=== PATIENT | female | born 1980 | race Caucasian/White ===

== ENCOUNTER → 2018-02-26 | Outpatient (CLI) | payer BC ==
[2018-02-28 10:05] LABS: HEPATITIS B SURFACE ANTIGEN NEGATIVE (NEGATIVE)
[2018-02-28 14:09] LABS: HEPATITIS C VIRUS ABY INDEX 2.5 INDEX (<0.8)
[2018-03-04 00:06] LABS: HCV RNA NAA QUALITATIVE Negative (Negative)
[2018-03-05 08:11] LABS: HIV 1&2 SCREEN CENTAUR PRELIMINARY POSITIVE (NEGATIVE)
[2018-03-05 08:12] LABS: IMMUNODEF. VIRAL AB CONFIRMAT NEGATIVE
== END ==
LOC: M WUC 11:22
DX: Z11.3 Encounter for screening for infections with a predominantly sexual mode of transmission (principal)
CPT/HCPCS: 87340

== ENCOUNTER → 2018-05-13 | Outpatient (CLI) | payer BC ==
[2018-05-14 11:57] LABS: HEPATITIS B SURFACE ANTIGEN NEGATIVE (NEGATIVE)
[2018-05-14 13:53] LABS: HEPATITIS C VIRUS ABY INDEX 2.4 INDEX (<0.8)
[2018-05-14 13:54] LABS: HIV 1&2 SCREEN CENTAUR REACTIVE (NEGATIVE)
[2018-05-20 08:54] LABS: HCV RNA NAA QUALITATIVE Negative (Negative)
== END ==
LOC: M WUC 10:25
DX: Z11.3 Encounter for screening for infections with a predominantly sexual mode of transmission (principal)
CPT/HCPCS: 87340

== ENCOUNTER 2019-12-21 22:09 | Emergency (ER) | payer BC ==
[~2019-12-21] VITALS: Ht 162.6 cm; Wt 50.3 kg
[~2019-12-21 22:09] MED LIST: IBUP80TA PO; PRENTAB43 PO; TYLE500T7 PO; VALT1TAB PO
[2019-12-21] MEDS: GASTROGRAFIN SOLUTION 30ML PO SCH (23:56)
[2019-12-22 00:09] LABS: BASO % 0.4 % (0.0-1.0); EOS # 0.1 10^3/uL (0.0-0.5); EOS % 1.2 % (0.0-3.0); HEMATOCRIT 38.6 % (36.0-47.0); HEMOGLOBIN 12.9 g/dl (12.0-15.5); LYMPH # 1.5 10^3/uL (1.5-5.0); LYMPH % 18.4 % (24.0-44.0); MEAN CORPUSCULAR HEMOGLOBIN 30.1 pg (27.0-33.0); MEAN CORPUSCULAR HGB CONC 33.4 g/dl (32.0-36.5); MONO # 0.7 10^3/uL (0.0-0.8); MONO % 8.5 % (0.0-5.0); NEUTROPHILS # 5.7 10^3/uL (1.5-8.5); NEUTROPHILS % 70.6 % (36.0-66.0); PLATELET COUNT, AUTOMATED 209 10^3/uL (150-450); RED BLOOD COUNT 4.29 10^6/uL (4.00-5.40)
[2019-12-22 00:13] LABS: HCG, SERUM QUALITATIVE NEGATIVE (NEGATIVE)
[2019-12-22] MEDS: GASTROGRAFIN SOLUTION 30ML PO SCH (00:22)
[2019-12-22 00:38] LABS: ALBUMIN 3.6 GM/DL (3.2-5.2); ALT/SGPT 14 U/L (12-78); BILIRUBIN,DIRECT < 0.1 MG/DL (0.0-0.2); BILIRUBIN,TOTAL 0.2 MG/DL (0.2-1.0); BLOOD UREA NITROGEN 12 MG/DL (7-18); CALCIUM LEVEL 8.8 MG/DL (8.5-10.1); CARBON DIOXIDE LEVEL 25 MEQ/L (21-32); CHLORIDE LEVEL 109 MEQ/L (98-107); CREATININE FOR GFR 0.66 MG/DL (0.55-1.30); GLOMERULAR FILTRATION RATE > 60.0 (>60); GLUCOSE, FASTING 101 MG/DL (70-100); LIPASE 100 U/L (73-393); POTASSIUM SERUM 3.8 MEQ/L (3.5-5.1); SODIUM LEVEL 139 MEQ/L (136-145); TOTAL PROTEIN 6.7 GM/DL (6.4-8.2)
--- NOTE | 2019-12-22 02:05 | REPVR ---
PROCEDURE INFORMATION: Exam: CT Abdomen And Pelvis Without Contrast Exam date and time: 12/21/2019 11:24 PM Age: 39 years old Clinical indication: Abdominal pain; Localized; Left lower quadrant (llq) TECHNIQUE: Imaging protocol: Computed tomography of the abdomen and pelvis without contrast. Radiation optimization: All CT scans at this facility use at least one of these dose optimization techniques: automated exposure control; mA and/or kV adjustment per patient size (includes targeted exams where dose is matched to clinical indication); or iterative reconstruction. COMPARISON: No relevant prior studies available. FINDINGS: Lungs: The imaged portions of the lung bases are clear. Heart: No cardiomegaly or pericardial effusion. Liver: The imaged portion of the liver is unremarkable. The superior aspect of the right hepatic lobe was not imaged. Incidental note is made of a 5 mm cyst in the anterior superior segment 8 of the right hepatic lobe (image 17 of the axial series 201). Gallbladder and bile ducts: No calcified gallstones are noted. No gallbladder wall thickening, pericholecystic fluid, or pericholecystic inflammatory changes are identified. No dilation of the intrahepatic or extrahepatic bile ducts is noted. Pancreas: Unremarkable. No dilation of the main pancreatic duct is noted. There is no inflammatory fat stranding around the pancreas to suggest acute pancreatitis. Spleen: Unremarkable. No splenomegaly is noted. Adrenals: Normal. No adrenal mass is noted. Kidneys and ureters: The kidneys are unremarkable. No renal lesion is identified. No calculi are seen in the kidneys or ureters. There is no hydronephrosis or hydroureter. Stomach and bowel: There is no evidence for a bowel obstruction, diverticulosis, diverticulitis, colitis, perforated viscus, pneumatosis intestinalis, intussusception, or volvulus. Appendix: There are no findings to suggest acute appendicitis. Intraperitoneal space: No free air. There is a trace amount of free fluid in the cul-de-sac. Retroperitoneal space: No fluid collection. No mass. Vasculature: No abdominal aortic aneurysm. Lymph nodes: Normal. No enlarged lymph nodes. Bladder: The distended urinary bladder is normal in appearance. No stones or masses are seen in the bladder. Reproductive: There is an intrauterine device in the endometrial canal and each of the limbs of the intrauterine device penetrate into the myometrium (images 52-57 of the coronal series 202, images 97-102 of the axial series 201, and images 39-47 of the sagittal series 203). The uterus is retroverted. There is a 5.6 cm left ovarian lesion, which has components that measure water density and higher attenuation components that measure approximately 56 Hounsfield units. No calcifications or fat density components are seen within this lesion. The right ovary is unremarkable. Bones/joints: The imaged bony structures are intact. There is no suspicious osteolytic or osteoblastic lesion. Soft tissues: Incidental note is made of a piercing in the umbilical region. There is a tiny fat containing umbilical hernia. IMPRESSION: 1. 5.6 cm complex left ovarian lesion, which may represent a hemorrhagic left ovarian cyst or ovarian tumor. Further evaluation with a pelvic ultrasound is suggested. 2. Intrauterine device in the endometrial canal and each of the limbs of the intrauterine device penetrate into the myometrium. 3. Trace amount of free fluid in the cul-de-sac. Electronically signed by: Ori Staley On 12/22/2019 02:04:25 AM
--- NOTE | 2019-12-22 03:12 | REPVR ---
PROCEDURE INFORMATION: Exam: US Pelvis Complete, Transabdominal and US Pelvis, Transvaginal and US Duplex Artery and Vein, Ovaries, Complete Exam date and time: 12/22/2019 2:41 AM Age: 39 years old Clinical indication: Pain and abnormal findings; Abnormal imaging test; Pelvic pain; Additional info: Eval L adnexal mass TECHNIQUE: Imaging protocol: Real-time transabdominal and transvaginal pelvic ultrasound (complete) with image documentation. Transvaginal imaging was used for better evaluation of the endometrium and adnexa. Real-time duplex ultrasound scan of the arterial and venous flow of the ovaries with B-mode, color Doppler flow and spectral waveform analysis. COMPARISON: CT ABD/PEL W/PO CONTRAST ONLY 12/22/2019 1:13 AM FINDINGS: Uterus/cervix: The uterus is retroverted and measures 7.9 cm x 3.6 cm x 4.5 cm. No myometrial mass is noted. There is an intrauterine device in the endometrial canal, and both limbs for the intrauterine device have penetrated into the myometrium. The endometrium measures 3 mm in thickness. Right adnexa: The right ovary is normal in appearance and measures 2.2 cm x 1.2 cm x 1.9 cm. The arterial and venous color Doppler flow and spectral waveforms within the right ovary are within normal limits, without evidence for right ovarian torsion. Left adnexa: The left ovary measures 6.2 cm x 4.4 cm x 5.1 cm and contains a complex lesion with heterogeneous echogenicity measuring 5.1 cm x 3.9 cm x 4.1 cm. Some color Doppler flow is seen within the lesion. The arterial and venous color Doppler flow and spectral waveforms within the left ovary are within normal limits, without evidence for left ovarian torsion. Free fluid: There is a trace amount of free fluid in the cul-de-sac. Bladder: The bladder is normal in appearance. IMPRESSION: 1. 5.1 cm x 3.9 cm x 4.1 cm complex left ovarian lesion, which may represent an ovarian tumor rather than a hemorrhagic ovarian cyst given that some internal vascularity was demonstrated within this lesion. Gynecology consultation is recommended for further management. A follow-up pelvic ultrasound could be performed in 6-8 weeks, ideally during days 3-10 of the follicular phase of the menstrual cycle to determine if the lesion resolves or decreases in size as would be the case for a hemorrhagic ovarian cyst. Alternatively, surgical removal could be performed for a pathologic diagnosis. 2. No evidence for ovarian torsion. 3. Intrauterine device in the endometrial canal, and both limbs for the intrauterine device penetrate into the myometrium. 4. Trace amount of free fluid in the cul-de-sac. Electronically signed by: Ori Staley On 12/22/2019 03:12:07 AM
[2019-12-22 03:38] VITALS: BP 109/67
--- NOTE | 2019-12-22 06:44 | ED PDOC ---
Post-Departure Follow-Up dr jenkins and sofía thorpe faxed formal report of pelvic us for fu Graham Gotti MD Dec 22, 2019 06:44
== END 2019-12-22 03:54 | disposition home or self-care (01) ==
LOC: M ED 22:09
DX: N83.202 Unspecified ovarian cyst, left side (principal); Z79.899 Other long term (current) drug therapy
CPT/HCPCS: 74176; 76830; 76856; 80053; 80076; 81001; 83690; 84703; 85025; 93976; 99284; Q9963

== ENCOUNTER → 2020-03-08 | Outpatient (CLI) | payer BC ==
--- NOTE | 2020-03-09 03:11 | REP ---
Clinical: Follow-up left ovarian lesion. Comparison: 12/22/2019 . Technique: Transabdominal pelvic ultrasound followed by transvaginal examination for better evaluation of the endometrium and adnexa with color Doppler evaluation of the ovaries. Findings: Bladder is unremarkable and measures 7.8 x 6.5 x 10.1 cm . Heterogeneous retroverted uterus measures 8.5 x 3.9 x 4.5 cm, and IUD is again identified malrotated with the arms into the myometrium. The endometrial complex measures 2.8 mm thickness excluding a small amount of endocervical fluid which is nonspecific. Bilateral ovaries are normal in vascularity without evidence for torsion. Right ovary measures 4.4 x 2.3 x 2.7 cm (RI 0.61) and includes new 2.0 x 1.8 x 2.0 cm complex right ovarian cyst likely hemorrhagic cyst. Left ovary measures 4.2 x 1.6 x 2.2 cm (RI 0.72) and includes 1.2 x 1.0 x 1.5 cm hypoechoic lesion which may represent the previously noted resolving 5 cm hemorrhagic cyst and new 1.4 x 1.1 x 1.5 cm presumed dominant follicle. No pelvic fluid or adnexal mass lesion. Impression: 1. Heterogeneous retroverted uterus with small amount of endocervical fluid. 2. The IUD is again identified and appears to be somewhat malrotated with the arms extending into the myometrium. 3. Cystic changes to the bilateral ovaries which appear different as compared to prior examination and likely represent physiologic changes. The previously noted 5 cm left ovarian structure is likely decreasing/resolving. Electronically Signed by Wale Juarez MD 03/09/2020 03:03 A
== END ==
LOC: M RAD 08:25
PROVIDERS: ATTEND Obstetrics & Gynecology
DX: D39.12 Neoplasm of uncertain behavior of left ovary (principal)

== ENCOUNTER → 2020-10-09 | Outpatient (CLI) | payer SELFPAY | LOC: M LABSMTC 08:05 | PROVIDERS: ATTEND Pediatrics | DX: Z20.828 Contact with and (suspected) exposure to other viral communicable diseases (principal) ==

== ENCOUNTER 2022-07-15 18:46 | Emergency (ER) | payer BC ==
[~2022-07-15] VITALS: Ht 162.6 cm; Wt 53.2 kg
[2022-07-15] MEDS ORDERED: CEPH500C PO (19:09)
[2022-07-15] MEDS ORDERED: NS 1,000 ML IV ONE (20:25)
[2022-07-15] MEDS ORDERED: KETOROLAC 30 MG/ML 1ML VIAL IV ONE (20:25)
[2022-07-15 20:46] LABS: BASO % 0.2 % (0.0-1.0); EOS # 0.1 10^3/uL (0.0-0.5); HEMATOCRIT 41.2 % (36.0-47.0); HEMOGLOBIN 13.5 g/dl (12.0-15.5); LYMPH # 1.8 10^3/uL (1.5-5.0); LYMPH % 14.3 % (24.0-44.0); MEAN CORPUSCULAR HEMOGLOBIN 29.5 pg (27.0-33.0); MEAN CORPUSCULAR HGB CONC 32.8 g/dl (32.0-36.5); MEAN CORPUSCULAR VOLUME 90.2 fl (80.0-96.0); MONO # 1.4 10^3/uL (0.0-0.8); MONO % 10.9 % (2.0-8.0); NEUTROPHILS % 73.2 % (36.0-66.0); PLATELET COUNT, AUTOMATED 206 10^3/uL (150-450); RED BLOOD COUNT 4.57 10^6/uL (4.00-5.40); WHITE BLOOD COUNT 12.3 10^3/uL (4.0-10.0)
[2022-07-15 21:08] LABS: ERYTHROCYTE SEDIMENTATION RATE 39 mm/hr (0-20)
[2022-07-15] MEDS ORDERED: DOXYCYCLINE HYCLATE 100 MG in D5W MINI-BAG PLUS 100 ML IV ONE (21:55)
[2022-07-16] MEDS ORDERED: DOXY-443 PO (00:11)
[2022-07-16 00:21] VITALS: BP 140/82
== END 2022-07-16 00:22 | disposition home or self-care (01) ==
LOC: M ED 18:46
DX: N61.0 Mastitis without abscess (principal)
CPT/HCPCS: 76642; 80047; 83605; 85025; 85652; 86140; 87040; 87070; 87077; 87186; 96361; 96374; 96375; 99284; J1885

== ENCOUNTER → 2022-07-25 | Outpatient (REF) | payer BC ==
[~2022-07-25] MED LIST changes: +CEPH500C PO; +DOXY-443 PO
== END ==
LOC: M PLALAB 13:21
PROVIDERS: ATTEND Nurse Practitioner Family
DX: Z12.4 Encounter for screening for malignant neoplasm of cervix (principal)
CPT/HCPCS: 87624; G0123

== ENCOUNTER → 2022-08-16 | Outpatient (CLI) | payer BC | LOC: M WHC 10:50 | PROVIDERS: ATTEND Surgery | DX: N60.01 Solitary cyst of right breast (principal) | CPT/HCPCS: 76642; 77065; G0279 ==

== ENCOUNTER → 2022-08-27 | Outpatient (CLI) | payer BC | LOC: M CLY 10:43 | PROVIDERS: ATTEND Nurse Practitioner Family | DX: S69.92XD Unspecified injury of left wrist, hand and finger(s), subsequent encounter (principal) ==

== ENCOUNTER → 2022-08-27 | Outpatient (REF) | payer BC ==
[2022-08-27 20:40] LABS: BLOOD UREA NITROGEN 14 MG/DL (7-18); CALCIUM LEVEL 8.3 MG/DL (8.5-10.1); CARBON DIOXIDE LEVEL 25 MEQ/L (21-32); CHLORIDE LEVEL 108 MEQ/L (98-107); CHOLESTEROL LEVEL 231 MG/DL (<200); CHOLESTEROL RISK RATIO 2.887 (<5); CREATININE FOR GFR 0.62 MG/DL (0.55-1.30); GLOMERULAR FILTRATION RATE > 60.0 (>58); GLUCOSE, FASTING 80 MG/DL (70-100); HDL CHOLESTEROL 80 MG/DL (>40); LDL CHOLESTEROL 140 MG/DL (<100); NON-HDL-C 151 MG/DL; POTASSIUM SERUM 4.6 MEQ/L (3.5-5.1); SODIUM LEVEL 141 MEQ/L (136-145); TRIGLYCERIDES LEVEL 55 MG/DL (<150)
== END ==
LOC: M SFHCCLAY 10:33
PROVIDERS: ATTEND Nurse Practitioner Family
DX: F17.210 Nicotine dependence, cigarettes, uncomplicated (principal)

== ENCOUNTER → 2022-11-01 | Outpatient (CLI) | payer BC | LOC: M CLY 11:19 | PROVIDERS: ATTEND Nurse Practitioner Family | DX: S46.212A Strain of muscle, fascia and tendon of other parts of biceps, left arm, initial encounter (principal); Y99.8 Other external cause status; Y92.89 Other specified places as the place of occurrence of the external cause; Y93.89 Activity, other specified ==

== ENCOUNTER → 2024-11-09 | Outpatient (REF) | payer BC ==
[~2024-11-09] MED LIST changes: +DOXY-441 PO; -DOXY-443 PO
[2024-11-09 17:27] LABS: ALBUMIN 3.8 G/DL (3.2-5.2); ALKALINE PHOSPHATASE 58 U/L (35-104); ALT/SGPT 17 U/L (7.0-40); AST/SGOT 12 U/L (<34); BILIRUBIN,TOTAL 0.7 MG/DL (0.3-1.2); BLOOD UREA NITROGEN 11 MG/DL (9-23); CALCIUM LEVEL 9.3 MG/DL (8.5-10.1); CARBON DIOXIDE LEVEL 26 MMOL/L (20-31); CHLORIDE LEVEL 108 MMOL/L (98-107); CHOLESTEROL LEVEL 295 MG/DL (<200); CHOLESTEROL RISK RATIO 3.85 (<5); CREATININE FOR GFR 0.67 MG/DL (0.55-1.30); GLOMERULAR FILTRATION RATE > 60.0 (>58); GLUCOSE, FASTING 85 MG/DL (60-100); HDL CHOLESTEROL 76.5 MG/DL (>40); LDL CHOLESTEROL 198.9 MG/DL (<100); NON-HDL-C 218.5 MG/DL; POTASSIUM SERUM 4.4 MMOL/L (3.5-5.1); SODIUM LEVEL 141 MMOL/L (136-145); TOTAL PROTEIN 7.8 G/DL (5.7-8.2); TRIGLYCERIDES LEVEL 98 MG/DL (<150)
== END ==
LOC: M SFHCCLAY 11:19
PROVIDERS: ATTEND Nurse Practitioner Family
DX: Z00.00 Encounter for general adult medical examination without abnormal findings (principal)

== ENCOUNTER → 2024-11-26 | Outpatient (CLI) | payer BC | LOC: M RAD 11:09 | PROVIDERS: ATTEND Nurse Practitioner Family | DX: M67.912 Unspecified disorder of synovium and tendon, left shoulder (principal); S46.212A Strain of muscle, fascia and tendon of other parts of biceps, left arm, initial encounter; M19.012 Primary osteoarthritis, left shoulder ==